=== PATIENT | female | born 1985 | race African-American/Black ===

== ENCOUNTER 2023-02-02 21:54 | Emergency (ER) | payer OTHER ==
[2023-02-02 22:15] VITALS: RESP 18; TEMP 98.5; BMI 32.1
[2023-02-03 00:08] LABS: HCG,QUALITATIVE URINE Positive
[2023-02-03 00:35] LABS: URINE APPEARANCE CLEAR; URINE BILIRUBIN NEGATIVE (NEGATIVE); URINE COLOR YELLOW; URINE GLUCOSE (UA) NEGATIVE (NEGATIVE); URINE KETONE NEGATIVE (NEGATIVE); URINE LEUK ESTERASE NEGATIVE (NEGATIVE); URINE NITRITE NEGATIVE (NEGATIVE); URINE PROTEIN NEGATIVE (NEGATIVE); URINE UROBILINOGEN 0.2 mg/dL (0.2-1.0)
[2023-02-03 01:58] LABS: BASO % 0.9 % (0-2.0); EOS % 0.6 % (0-4.5); HEMATOCRIT 34.1 % (32.4-45.2); HEMOGLOBIN 11.4 GM/dL (10.7-15.3); LYMPH % 32.5 % (8-40); MCH 32.2 pg (25.7-33.7); MCHC 33.5 g/dl (32.0-36.0); MEAN CELL VOLUME 96.3 fl (80-96); MEAN PLT VOLUME 7.1 fl (7.5-11.1); MONO % 6.6 % (3.8-10.2); NEUT % 59.4 % (42.8-82.8); PLATELET COUNT 396 10^3/uL (134-434); RBC 3.55 M/mm3 (3.60-5.2); RDW 14.4 % (11.6-15.6); WHITE BLOOD COUNT 11.5 K/mm3 (4.0-10.0)
[2023-02-03 02:19] LABS: CALCIUM 8.7 mg/dL (8.5-10.1)
[2023-02-03 02:20] LABS: ALBUMIN 3.4 g/dl (3.4-5.0); BLOOD UREA NITROGEN 4.7 mg/dL (7-18)
[2023-02-03 02:23] LABS: CREATININE 0.5 mg/dL (0.55-1.3)
[2023-02-03 02:24] LABS: BILIRUBIN,TOTAL 0.3 mg/dL (0.2-1); TOT PROT 6.8 g/dl (6.4-8.2)
[2023-02-03 04:12] VITALS: BP 110/61; PULSE 91
== END 2023-02-03 04:32 | disposition home or self-care (01) ==
LOC: JER 21:54
DX: O26.891 Other specified pregnancy related conditions, first trimester (principal); R10.30 Lower abdominal pain, unspecified; O21.9 Vomiting of pregnancy, unspecified; Z3A.08 8 weeks gestation of pregnancy
CPT/HCPCS: 36415; 76817-TC; 80053; 81003; 84702; 84703; 85025; 99284-25